=== PATIENT | female | born 1950 | race Caucasian/White ===

== ENCOUNTER 2018-12-16 17:03 | Emergency (ER) | payer MEDICARE ==
[2018-12-16] MEDS ORDERED: Morphine 4 MG/ML VIAL ONE (17:33)
[2018-12-16 18:02] LABS: #Basophils 0.2 thou/uL (0.0-0.2); #Eosinphils 0.5 thou/uL (0.0-0.7); #Lymphocytes 2.2 thou/uL (1.20-3.40); #Monocytes 0.8 thou/uL (0.11-0.59); #Neutrophils 7.6 thou/uL (1.40-6.50); %Basophils 1.4 % (0.0-1.0); %Eosinophils 4.6 % (0.0-10.0); %Lymphocytes 19.3 % (21.0-51.0); %Monocytes 7.1 % (0.0-10.0); %Neutrophils 67.6 % (42.0-75.0); Hemoglobin 14.2 g/dL (12.0-16.0); Mean Corpuscular HGB CONC 34.2 g/dL (32.0-36.0); Mean Corpuscular Volume 87.9 fL (78.0-98.0); Mean Platelet Volume 6.8 fL (7.4-10.4); Platelet Count 272 thou/uL (130-400); RBC Distribution Width 14.7 % (11.5-14.5); Red Blood Cell (RBC) Count 4.75 mill/uL (4.20-5.40); White Blood Cell (WBC) Count 11.3 thou/uL (4.8-10.8)
[2018-12-16] MEDS ORDERED: Adacel (T-DAP) 0.5 ML SYRINGE ONE (18:11)
--- NOTE | 2018-12-16 18:17 | CT ---
EXAM: CT brain without contrast HISTORY: Fall with head trauma COMPARISON: None TECHNIQUE: Multiple contiguous axial images were obtained and a CT of the brain without contrast. FINDINGS: There are scattered hypodensities in the subcortical and periventricular white matter consi stent with small vessel ischemic disease. There is no evidence of hydrocephalus, intracranial hemorrhage, or extra-axial fluid collection. The calvarium and overlying soft tissues are unremarkable. The visualized paranasal sinuses and masto id air cells are well aerated. IMPRESSION: No evidence of acute intracranial abnormality
[2018-12-16] MEDS ORDERED: Fentanyl 100 MCG/2 ML VIAL ONE (18:21)
--- NOTE | 2018-12-16 18:31 | CT ---
EXAM: CT face without contrast HISTORY: Facial trauma after fall COMPARISON: None TECHNIQUE: Multiple contiguous axial images were obtained and a CT of the face without contrast. Sagi ttal and coronal reformats were performed. FINDINGS: No facial fractures are identified. There is bilateral subluxation of the TMJs. No facial s oft tissue swelling is seen. The globes and retrobulbar soft tissues are unremarkable. The visualized paranasal sinuses are well aerated without evidence of opacification. The mastoid air cells are well aerated. Visualized intracranial structures are unremarkable. IMPRESSION: 1. No evidence of facial fracture 2. Nonspecific bilateral symmetric TMJ subluxation which may be baseline normal for the patient.
[2018-12-16 18:49] LABS: ALT (SGPT) 16 U/L (8-55); AST (SGOT) 16 U/L (5-34); Alkaline Phosphatase 68 U/L (40-150); Anion Gap 15 mmol/L (10-20); BUN (Urea Nitrogen) 24 mg/dL (9.8-20.1); Bilirubin, Total 0.2 mg/dL (0.2-1.2); Calc. Creatinine Clearance 0 mL/min (70-130); Calcium 9.9 mg/dL (7.8-10.44); Carbon Dioxide 30 mmol/L (23-31); Chloride 99 mmol/L (98-107); Estimated GFR-MDRD 45; Globulin 2.9 g/dL (2.4-3.5); Glucose 159 mg/dL (80-115); Lipase 25 U/L (8-78); Potassium 3.7 mmol/L (3.5-5.1); Protein, Total 6.9 g/dL (6.0-8.3); Sodium 140 mmol/L (136-145)
[2018-12-16] MEDS ORDERED: CEFAZOLIN 1 GM VIAL ONE (18:57)
--- NOTE | 2018-12-16 18:57 | CT ---
EXAM: CT of the lumbar spine without contrast HISTORY: Low back pain after fall while running COMPARISON: None TECHNIQUE: Multiple contiguous axial images were obtained in a CT of the lumbar spine without contras t. Sagittal and coronal reformats were performed. FINDINGS: The vertebral bodies demonstrate normal height and alignment without fracture or subluxatio n. The intervertebral discs are narrowed throughout the lumbar spine with sclerosis of the endplates. Vacuum phenomenon is seen at multiple levels. Moderate osteophytes are seen throughout the lumbar spine which project both anteriorly and into the central canal. Moderate narrowing of the bony central canal is seen from L3/4 through L5/S1. There is moderate to severe bilateral bony narrow ing of the neural foramina from L1 2/3 through L5/S1. There is an oval-shaped right adrenal mass measuring 2.3 cm in greatest dimension. This has a mean [place] unit value of -16 consistent with a fat-containing adrenal adenoma. There is hyperplasia of the left adrenal gland. Atherosclerotic calcifications are seen in the aorta.. The other preverte bral and paraspinal soft tissues are unremarkable. IMPRESSION: Degenerative changes of the lumbar spine without acute osseous abnormality.
--- NOTE | 2018-12-16 18:59 | CT ---
EXAM: CT of the cervical spine without contrast HISTORY: Neck pain after fall while running COMPARISON: None TECHNIQUE: Multiple contiguous axial images were obtained in a CT of the cervical spine without contr ast. Sagittal and coronal reformats were performed. FINDINGS: The vertebral bodies demonstrate normal height and alignment without fracture or subluxatio n. There is fusion of C2 and C3. The intervertebral discs are narrowed throughout the cervical spine with moderate to severe anterior and posterior osteophytes. No prevertebral soft tissue swelli ng is seen. Moderate bony narrowing of the central canal is seen in the mid and lower cervical spine. The posterior facets are well aligned. Normal alignment of the skull base with the cervical spine is seen. The lung apices and cervical soft tissues are unremarkable. IMPRESSION: Degenerative changes without evidence of acute osseous abnormality of the cervical spine.
--- NOTE | 2018-12-16 19:01 | CT ---
EXAM: CT of the thoracic spine without contrast HISTORY: Back pain after fall while running COMPARISON: None TECHNIQUE: Multiple contiguous axial images were obtained in a CT of the thoracic spine without contr ast. Sagittal and coronal reformats were performed. FINDINGS: The vertebral bodies and intervertebral discs demonstrate normal height and alignment witho ut fracture or subluxation. Small anterior osteophytes are seen throughout the thoracic spine. No bony narrowing of the central canal or neural foramina is seen in the thoracic spine. Atherosclerotic calcifications are seen in the aorta. There is a right adrenal mass which likely rep resents an adrenal adenoma. There is hyperplasia of the left adrenal gland. The other prevertebral and paraspinal soft tissues are unremarkable. IMPRESSION: No evidence of acute osseous abnormality of the thoracic spine.
--- NOTE | 2018-12-16 19:17 | RAD ---
EXAM: 3 views of the right wrist HISTORY: Wrist pain after fall COMPARISON: None FINDINGS: 3 views of the right wrist shows no evidence of acute fracture or dislocation. Mild soft ti ssue swelling is seen. Joint space narrowing and osteophyte formation is seen in the first CMC joint. IMPRESSION: No evidence of acute osseous abnormality.
--- NOTE | 2018-12-16 19:17 | RAD ---
EXAM: Single view of the chest HISTORY: Chest pain after fall while running COMPARISON: None FINDINGS: Single view of the chest shows a normal sized cardiomediastinal silhouette. There is no alaina dence of consolidation, mass, or pleural effusion. There is a left shoulder prosthesis. Degenerative changes are seen in the spine. IMPRESSION: No evidence of acute cardiopulmonary disease
--- NOTE | 2018-12-16 19:18 | RAD ---
EXAM: 3 views of the left wrist HISTORY: Wrist pain after fall COMPARISON: None FINDINGS: 3 views of the left wrist shows no evidence of acute fracture or dislocation. Mild soft tis dilan swelling is seen. Moderate joint space narrowing and osteophyte formation is seen in the first CMC joint. IMPRESSION: No evidence of acute osseous abnormality.
--- NOTE | 2018-12-16 19:19 | RAD ---
Exam: Single view of the pelvis HISTORY: Pelvic pain after fall while running COMPARISON: None FINDINGS: A single view the pelvis shows no evidence of acute fracture or dislocation. No degenerativ e changes seen in either hip. Degenerative changes are seen in the lumbar spine. IMPRESSION: No evidence of acute osseous abnormality.
[2018-12-16] MEDS ORDERED: Bacitracin 1 PK ONE (20:19)
[2018-12-16 20:26] LABS: Bilirubin Negative (Negative); Blood, Urine Trace (Negative); Clarity Clear (Clear); Glucose, Urine (Dipstick) Negative (Negative); Leukocyte Trace (Negative); Nitrite Negative (Negative); Protein, Urine (Dipstick) 100 mg/dL (Neg-Trace); Urobilinogen 0.2 mg/dL (Less than 2)
[2018-12-16 20:31] LABS: Bacteria/HPF Rare-Few HPF (None Seen); RBC/HPF 0-3 HPF (0-3); Squamous Epithelial 0-3 HPF (0-3); WBC/HPF 0-3 HPF (0-3)
== END 2018-12-16 20:54 | disposition home or self-care (01) ==
LOC: SCSER 17:03
DX: S01.511A Laceration without foreign body of lip, initial encounter (principal); S00.83XA Contusion of other part of head, initial encounter; M54.5 Low back pain; M54.6 Pain in thoracic spine; E11.9 Type 2 diabetes mellitus without complications; E78.5 Hyperlipidemia, unspecified; I10 Essential (primary) hypertension; J44.9 Chronic obstructive pulmonary disease, unspecified; W18.30XA Fall on same level, unspecified, initial encounter
CPT/HCPCS: 12011; 70450; 70486; 71045; 72125; 72128; 72131; 72170; 80053; 81003; 81015; 83690; 84484; 85025; 86850; 86900; 86901; 90471; 90715; 93005; 96361; 96365; 96366; 96375; J0690; J2270; J3010